=== PATIENT | male | born 1970 | race Hispanic/Latino ===

== ENCOUNTER 2020-12-18 22:40 | Emergency (ER) | payer SELFPAY | END 2020-12-18 23:52 | disposition home or self-care (01) | LOC: ERS 22:40 | DX: H65.192 Other acute nonsuppurative otitis media, left ear (principal) | CPT/HCPCS: 99282 ==

== ENCOUNTER 2021-08-02 20:44 | Inpatient (IN) | payer OTHER, SELFPAY ==
[~2021-08-02 20:44] MED LIST: Iopamidol-370 76% 500 ML 1 ML ONE
[2021-08-02] MEDS ORDERED: ceFAZolin 2 GM/DEX 5% 100 ML BAG ONE (20:51)
[2021-08-02] MEDS ORDERED: Boostrix 0.5 ML (Tdap) VIAL ONE (20:52)
[2021-08-02] MEDS ORDERED: Propofol 1,000 MG/100 ML VIAL IV ONE (21:05)
[2021-08-02 21:08] LABS: #Eosinphils 0.1 thou/uL (0.0-0.7); #Lymphocytes 3.2 thou/uL (1.20-3.40); #Monocytes 0.5 thou/uL (0.11-0.59); #Neutrophils 3.4 thou/uL (1.40-6.50); %Basophils 0.6 % (0.0-1.0); %Eosinophils 1.5 % (0.0-10.0); %Lymphocytes 44.3 % (21.0-51.0); %Monocytes 6.6 % (0.0-10.0); %Neutrophils 46.9 % (42.0-75.0); Hemoglobin 13.9 g/dL (14.0-18.0); Mean Corpuscular HGB CONC 34.3 g/dL (32.0-36.0); Mean Corpuscular Hemoglobin 32.2 pg (27.0-31.0); Mean Corpuscular Volume 93.9 fL (78.0-98.0); Mean Platelet Volume 7.2 fL (7.4-10.4); Platelet Count 237 thou/uL (130-400); RBC Distribution Width 11.8 % (11.5-14.5); White Blood Cell (WBC) Count 7.3 thou/uL (4.8-10.8)
[2021-08-02 21:21] LABS: PTT 25.1 sec (22.9-36.1); Prothrombin Time 12.9 sec (12.0-14.7)
[2021-08-02 21:32] LABS: ALT (SGPT) 15 U/L (8-55); AST (SGOT) 25 U/L (5-34); Alcohol 260 mg/dL (Less than 10); Alkaline Phosphatase 83 U/L (40-110); Anion Gap 17 mmol/L (10-20); BUN (Urea Nitrogen) 8 mg/dL (8.4-25.7); Bilirubin, Total 0.2 mg/dL (0.2-1.2); Calc. Creatinine Clearance 0 mL/min (70-130); Calcium 8.3 mg/dL (7.8-10.44); Carbon Dioxide 20 mmol/L (22-29); Chloride 106 mmol/L (98-107); Globulin 2.9 g/dL (2.4-3.5); Glucose 95 mg/dL (70-105); Potassium 3.1 mmol/L (3.5-5.1); Protein, Total 6.9 g/dL (6.0-8.3); Sodium 140 mmol/L (136-145)
[2021-08-02] MEDS ORDERED: Dextrose 50% Abboject 50 ML SYRINGE SLOW IVP PRN (21:54)
[2021-08-02] MEDS ORDERED: HumaLOG 300 UNITS/3 ML VIAL SC PRN (21:54)
[2021-08-02] MEDS ORDERED: Ondansetron PF 4 MG/2 ML Vial IVP PRN (21:54)
[2021-08-02] MEDS ORDERED: Dextrose 5% in Water 1,000 ML IV PRN (21:54)
[2021-08-02] MEDS ORDERED: Fentanyl 100 MCG/2 ML VIAL ONE (21:59)
[2021-08-02 22:01] LABS: Bilirubin Negative (Negative); Blood, Urine Negative (Negative); Clarity Clear (Clear); Glucose, Urine (Dipstick) Normal (Negative); Ketone, Urine Negative (Negative); Leukocyte Negative Leu/uL (Negative); Nitrite Negative (Negative); Protein, Urine (Dipstick) Negative (Neg-Trace); Specific Gravity, Urine 1.006 (1.002-1.036); Urobilinogen Normal mg/dL (Less than 2); pH, Urine 5.5 (5.0-9.0)
[2021-08-02] MEDS ORDERED: Morphine 4 MG/ML VIAL SLOW IVP PRN (22:05)
[2021-08-02] MEDS ORDERED: fentaNYL Citrate/PF 2,000 MCG in Sodium Chloride 0.9% 60 ML IV PRN (22:06)
[2021-08-02] MEDS ORDERED: Propofol 1,000 MG/100 ML VIAL IV PRN (22:06)
[2021-08-02] MEDS ORDERED: Potassium Phosphate 30 MMOL in Sodium Chloride 0.9% 500 ML IVPB SCH (22:15)
[2021-08-02] MEDS ORDERED: Lorazepam 2 MG/ML VIAL ONE (22:15)
[2021-08-02] MEDS ORDERED: Fentanyl CADD 100 ML IV SCH (22:15)
[2021-08-02] MEDS ORDERED: Magnesium Sulfate 3 GM in Sodium Chloride 0.9% 100 ML IV SCH (22:15)
[2021-08-02 22:34] LABS: SARS-CoV-2 NAA Rapid Test Not Detected (NotDetected)
[2021-08-02] MEDS ORDERED: cefTRIAXone\\ROCEPHIN 2 GM in Sodium Chloride 0.9% 100 ML IVPB SCH (23:59)
[2021-08-03 00:01] LABS: Lactic Acid 3.5 mmol/L (0.5-2.2)
[2021-08-03] MEDS: Sodium Chloride 0.9% 1,000 ML IV SCH ×3 (00:06→15:22)
[2021-08-03] MEDS: Oxazepam 10 MG CAP PO SCH ×4 (00:11→23:07)
[2021-08-03 00:33] VITALS: BMI 26.4
[2021-08-03 03:39] LABS: #Lymphocytes 1.6 thou/uL (1.20-3.40); #Monocytes 0.9 thou/uL (0.11-0.59); #Neutrophils 7.3 thou/uL (1.40-6.50); %Basophils 0.1 % (0.0-1.0); %Eosinophils 0.3 % (0.0-10.0); %Lymphocytes 16.5 % (21.0-51.0); %Monocytes 9.5 % (0.0-10.0); %Neutrophils 73.6 % (42.0-75.0); Mean Corpuscular HGB CONC 34.7 g/dL (32.0-36.0); Mean Corpuscular Hemoglobin 32.2 pg (27.0-31.0); Mean Corpuscular Volume 92.7 fL (78.0-98.0); Mean Platelet Volume 7.3 fL (7.4-10.4); Platelet Count 236 thou/uL (130-400); RBC Distribution Width 11.8 % (11.5-14.5); Red Blood Cell (RBC) Count 4.34 mill/uL (4.70-6.10); White Blood Cell (WBC) Count 9.9 thou/uL (4.8-10.8)
[2021-08-03 03:42] LABS: Lactic Acid 3.4 mmol/L (0.5-2.2)
[2021-08-03 03:47] LABS: Anion Gap 17 mmol/L (10-20); BUN (Urea Nitrogen) 8 mg/dL (8.4-25.7); Calc. Creatinine Clearance 105 mL/min (70-130); Calcium 8.3 mg/dL (7.8-10.44); Carbon Dioxide 20 mmol/L (22-29); Chloride 105 mmol/L (98-107); Glucose 111 mg/dL (70-105); Magnesium 1.8 mg/dL (1.6-2.6); Potassium 3.6 mmol/L (3.5-5.1); Sodium 138 mmol/L (136-145)
[2021-08-03] MEDS ORDERED: Magnesium Sulfate 4 GM in Sodium Chloride 0.9% 250 ML 250 ML IV SCH (07:15)
[2021-08-03] MEDS ORDERED: Folic Acid 0.4 MG in Admixture Fee 1 EACH SC SCH (09:00)
[2021-08-03] MEDS: Thiamine HCl 200 MG/2 ML VIAL SLOW IVP SCH (09:19)
[2021-08-03] MEDS: Folic Acid 1 MG TAB PER TUBE SCH (09:20)
[2021-08-03] MEDS: Aspirin Chewable 81 MG TAB PER TUBE SCH (09:20)
[2021-08-03] MEDS: Famotidine 20 MG TAB PO SCH ×2 (09:20→21:00)
[2021-08-03] MEDS ORDERED: Acetaminophen/Codeine 30-300mg Tablet PO PRN (20:28)
[2021-08-03] MEDS ORDERED: Morphine 4 MG/ML VIAL SLOW IVP PRN (20:28)
[2021-08-03] MEDS: Acetaminophen 325 MG TAB PO SCH (21:01)
[2021-08-04] MEDS: Acetaminophen 325 MG TAB PO SCH (03:24)
[2021-08-04] MEDS: Oxazepam 10 MG CAP PO SCH (05:39)
[2021-08-04 05:50] LABS: #Monocytes 0.8 thou/uL (0.11-0.59); #Neutrophils 6.6 thou/uL (1.40-6.50); %Basophils 0.4 % (0.0-1.0); %Eosinophils 0.4 % (0.0-10.0); %Lymphocytes 11.4 % (21.0-51.0); %Monocytes 8.9 % (0.0-10.0); %Neutrophils 78.8 % (42.0-75.0); Hemoglobin 12.6 g/dL (14.0-18.0); Mean Corpuscular HGB CONC 35.1 g/dL (32.0-36.0); Mean Corpuscular Hemoglobin 32.6 pg (27.0-31.0); Mean Platelet Volume 7.2 fL (7.4-10.4); Platelet Count 205 thou/uL (130-400); RBC Distribution Width 11.5 % (11.5-14.5); Red Blood Cell (RBC) Count 3.86 mill/uL (4.70-6.10); White Blood Cell (WBC) Count 8.4 thou/uL (4.8-10.8)
[2021-08-04 06:17] LABS: Anion Gap 10 mmol/L (10-20); BUN (Urea Nitrogen) 7 mg/dL (8.4-25.7); Calc. Creatinine Clearance 109 mL/min (70-130); Calcium 8.1 mg/dL (7.8-10.44); Carbon Dioxide 25 mmol/L (22-29); Chloride 103 mmol/L (98-107); Glucose 105 mg/dL (70-105); Magnesium 2.6 mg/dL (1.6-2.6); Potassium 4.2 mmol/L (3.5-5.1); Sodium 134 mmol/L (136-145)
[2021-08-04 08:07] VITALS: BP 143/76; TEMP 98
[2021-08-04] MEDS: Famotidine 20 MG TAB PO SCH (08:48)
[2021-08-04] MEDS: Folic Acid 1 MG TAB PER TUBE SCH (08:48)
[2021-08-04] MEDS: Aspirin Chewable 81 MG TAB PER TUBE SCH (08:48)
[2021-08-04] MEDS: Thiamine HCl 200 MG/2 ML VIAL SLOW IVP SCH (08:48)
[2021-08-04] MEDS ORDERED: Sodium Phosphate 30 MMOL in Sodium Chloride 0.9% 250 ML 250 ML IVPB SCH (09:00)
[2021-08-04] MEDS ORDERED: Acetaminophen 325 MG TAB PO SCH (12:00)
[2021-08-06] MEDS ORDERED: FLU VACC QS2021-22(6MOS UP)/PF 60 MCG/0.5 ML SYRINGE IM ONE (09:00)
== END 2021-08-04 15:33 | disposition home or self-care (01) | DRG 963 ==
LOC: ERS 20:44 → CCU 21:00 → SURG B 08-03 19:30
PROVIDERS: ADMIT Surgery; ATTEND Surgery
PROC: 5A1935Z Respiratory Ventilation, Less than 24 Consecutive Hours (ICD-10-PCS; principal; 2021-08-02)
DX: S06.4X9A Epidural hemorrhage with loss of consciousness of unspecified duration, initial encounter (principal); J96.00 Acute respiratory failure, unspecified whether with hypoxia or hypercapnia; S27.329A Contusion of lung, unspecified, initial encounter; S22.39XA Fracture of one rib, unspecified side, initial encounter for closed fracture; S15.109A Unspecified injury of unspecified vertebral artery, initial encounter; E87.2 Acidosis; S06.5X9A Traumatic subdural hemorrhage with loss of consciousness of unspecified duration, initial encounter; S02.32XA Fracture of orbital floor, left side, initial encounter for closed fracture; S02.40FA Zygomatic fracture, left side, initial encounter for closed fracture; R40.2113 Coma scale, eyes open, never, at hospital admission; H05.20 Unspecified exophthalmos; F10.129 Alcohol abuse with intoxication, unspecified; H05.232 Hemorrhage of left orbit; S02.40CA Maxillary fracture, right side, initial encounter for closed fracture; S02.40DA Maxillary fracture, left side, initial encounter for closed fracture; S02.19XA Other fracture of base of skull, initial encounter for closed fracture; S02.2XXA Fracture of nasal bones, initial encounter for closed fracture; E87.6 Hypokalemia; R40.2343 Coma scale, best motor response, flexion withdrawal, at hospital admission; Z20.822 Contact with and (suspected) exposure to COVID-19; R40.2213 Coma scale, best verbal response, none, at hospital admission; S02.91XB Unspecified fracture of skull, initial encounter for open fracture; V29.40XA Motorcycle driver injured in collision with unspecified motor vehicles in traffic accident, initial encounter
CPT/HCPCS: 36415; 36416; 70450; 70486; 70498; 71045; 71260; 72125; 72170; 74177; 80048; 80053; 80307; 83605; 83735; 84100; 85025; 85610; 85730; 86850; 86900; 86901; 90715; 93005; 94002; 94003; G0390; J0696; J2060; J2270; J2405; J2704; J3010; J3411; J3475; J3490; J7030; J7050; Q9967; U0002